=== PATIENT | female | born 1965 | race Caucasian/White ===

== ENCOUNTER 2017-04-20 18:57 | Emergency (ER) | payer BC ==
--- NOTE | 2017-04-20 19:54 | PDOC ---
Rapid Medical Evaluation Chief Complaint: Palpitations Time Seen by Provider: 04/20/17 19:49 Medical Evaluation: Allergies Allergy/AdvReac Type Severity Reaction Status Date / Time No Known Allergies Allergy Verified 04/13/17 05:03 04/20/17 19:51 I Have performed a brief in-person evaluation of this patient. c/o palpitations worse at night. associated symptoms: midsternal chest pain, fatigue, diaphoresis. reports that recently that b/p has been high pmhx : anxiety pertinent physical exam findings: patient alert ox3, nontender chest. regular rate s1 s2, breath sounds clear. I have ordered the following:cbc, cmp, cardiac labs, chest xray, EKG the patient will proceed to the ED for further evaluation. Discharge Disposition - Referrals Referrals: Shyann Aviles MD [Primary Care Provider] - - Patient Instructions - Post Discharge Activity
[2017-04-20 19:57] VITALS: BP 158/88; PULSE 94; TEMP 98.5; BMI 35.6
[2017-04-20 20:28] LABS: BASOPHIL 0.6 % (0-2.0); EOSINOPHIL 0.1 % (0-4.5); MCH 28.4 pg (25.7-33.7); MCHC 34.3 g/dl (32.0-36.0); MEAN CELL VOLUME 82.7 fl (80-96); MEAN PLT VOLUME 8.8 fl (7.5-11.1); PLATELET COUNT 335 K/MM3 (134-434); RDW 13.2 % (11.6-15.6); WHITE BLOOD COUNT 9.3 K/mm3 (4.0-10.0)
[2017-04-20 20:38] LABS: INR 0.95 (0.82-1.09); PROTHROMBIN TIME (PATIENT) 10.7 SEC (9.98-11.88)
[2017-04-20 20:59] LABS: ALBUMIN 4.2 g/dl (3.4-5.0); ALK PHOS 80 U/L (45-117); ANION GAP 8 (8-16); BILIRUBIN,TOTAL 1.1 mg/dL (0.2-1.0); CO2 28 mmol/L (21-32); CPK 79 IU/L (26-192); CREATININE 0.5 mg/dL (0.55-1.02); GLUCOSE,RANDOM 103 mg/dL (74-106); MAGNESIUM 2.4 mg/dL (1.8-2.4); SGOT/AST 13 U/L (15-37); SGPT/ALT 22 U/L (12-78); TOT PROT 8.4 g/dl (6.4-8.2); TROPONIN I < 0.02 ng/ml (0.00-0.05)
[2017-04-20 21:00] LABS: CALCIUM 9.3 mg/dL (8.5-10.1)
--- NOTE | 2017-04-21 01:25 | PDOC ---
History of Present Illness - General Chief Complaint: Palpitations Stated Complaint: FATIGUE Time Seen by Provider: 04/20/17 19:49 - History of Present Illness Initial Comments: 04/21/17 01:26 The patient is a 51 year old female with a significant PMH of HTN, anxiety and depression who presents to the emergency department with palpitations and generalized fatigue beginning approximately 3 weeks ago. The patients daughter reports that the patient has been generally drained of energy lately, causing her to call out of work about 2 days ago. The patients daughter notes that the patient's palpitations have generally come on when the patient is about to sleep or while she is sitting intermittently throughout the day. The patient was in the ED on 04/13 for similar complaints and was discharged home. The patient reports checking her own blood pressure intermittently in the past month , and subjectively reported it to have been high at times. The patient reports being prescribed Paroxetine and Hydrochlorthiazide for depression and HTN, respectively 3 days ago at the [employer] doctor's office. She reports increased urine output since then due to the HCTZ. The patient reports no recent travel, her last trip being to [facility] in December. The patients daughter notes that they have scheduled an appointment with a new PCP next week for these symptoms, but were hoping to get to the bottom of it today . The patient denies chest pain, shortness of breath, headache and dizziness. Denies fever, chills, nausea, vomit, diarrhea and constipation. Denies dysuria, frequency, urgency and hematuria. Allergies: NKA Past surgical history: None reported. Social history: No reported toxic habits. Past History - Past Medical History Allergies/Adverse Reactions: Allergies Allergy/AdvReac Type Severity Reaction Status Date / Time No Known Allergies Allergy Verified 04/13/17 05:03 Home Medications: Ambulatory Orders NK [No Known Home Medication] 04/13/17 Anemia: No Asthma: No Cancer: No Cardiac Disorders: No CVA: No COPD: No DVT: No Dementia: No Diabetes: No Dialysis: No GI Disorders: No Disorders: No HTN: No Hypercholesterolemia: No Kidney Stones: No Liver Disease: No Psychiatric Problems: Yes (Panic Attacks, Anxiety) Seizures: No Thyroid Disease: No Lung CA: No - Surgical History Abdominal Surgery: No Appendectomy: No Cardiac Surgery: No Cholecystectomy: No Gastric Stapling: No GI Surgery: No Lung Surgery: No Neurologic Surgery: No - Suicide/Smoking/Psychosocial Hx Smoking History: Never smoked Have you smoked in the past 12 months: No Information on smoking cessation initiated: No Hx Alcohol Use: No Drug/Substance Use Hx: No Substance Use Type: None Review of Systems - Review of Systems Comments:: 04/21/17 01:27 GENERAL/CONSTITUTIONAL: (+) Generalized fatigue. No fever or chills. No weakness. HEAD, EYES, EARS, NOSE AND THROAT: No change in vision. No ear pain or discharge. No sore throat. GASTROINTESTINAL: No nausea, vomiting, diarrhea or constipation. GENITOURINARY: No dysuria, frequency, or change in urination. CARDIOVASCULAR: (+) Palpitations. No chest pain or shortness of breath. RESPIRATORY: No cough, wheezing, or hemoptysis. MUSCULOSKELETAL: No joint or muscle swelling or pain. No neck or back pain. SKIN: No rash NEUROLOGIC: No headache, vertigo, loss of consciousness, or change in strength/ sensation. ENDOCRINE: No increased thirst. No abnormal weight change. HEMATOLOGIC/LYMPHATIC: No anemia, easy bleeding, or history of blood clots. ALLERGIC/IMMUNOLOGIC: No hives or skin allergy. *Physical Exam - Vital Signs Last Vital Signs Temp Pulse Resp BP Pulse Ox 98.5 F 94 H 18 158/88 96 04/20/17 19:49 04/20/17 19:49 04/20/17 19:49 04/20/17 19:49 04/20/17 19:49 - Physical Exam Comments: 04/21/17 01:27 GENERAL: Awake, alert, and fully oriented, in no acute distress HEAD: No signs of trauma EYES: PERRLA, EOMI, sclera anicteric, conjunctiva clear ENT: Auricles normal inspection, hearing grossly normal, nares patent, oropharynx clear without exudates. Moist mucosa NECK: Normal ROM, supple, no lymphadenopathy, JVD, or masses LUNGS: Breath sounds equal, clear to auscultation bilaterally. No wheezes, and no crackles HEART: Regular rate and rhythm, normal S1 and S2, no murmurs, rubs or gallops ABDOMEN: Soft, nontender, normoactive bowel sounds. No guarding, no rebound. No masses EXTREMITIES: Normal range of motion, no edema. No clubbing or cyanosis. No cords , erythema, or tenderness BACK: No midline spinal tenderness in cervical/thoracic/lumbar region NEUROLOGICAL: Normal speech, cranial nerves intact, negative pronator drift, 5/ 5 strength in all 4 extremities, normal sensation to light touch in all 4 extremities, normal cerebellar exam, normal gait, normal reflexes and tone SKIN: Warm, Dry, normal turgor, no rashes or lesions noted. ED Treatment Course - LABORATORY CBC & Chemistry Diagram: 04/20/17 19:35 04/20/17 19:35 - ADDITIONAL ORDERS Additional order review: Laboratory Results 04/20/17 04/20/17 04/20/17 20:40 20:25 20:25 PT with INR INR D-Dimer < 200 Sodium Potassium Chloride Carbon Dioxide Anion Gap BUN Creatinine Creat Clearance w eGFR Random Glucose Calcium Magnesium Total Bilirubin AST ALT Alkaline Phosphatase Creatine Kinase Troponin I < 0.02 Total Protein Albumin TSH 1.97 D 04/20/17 04/20/17 19:35 19:35 PT with INR 10.70 INR 0.95 D-Dimer Sodium 135 L Potassium 3.5 Chloride 99 Carbon Dioxide 28 Anion Gap 8 BUN 12 D Creatinine 0.5 L Creat Clearance w eGFR > 60 Random Glucose 103 Calcium 9.3 Magnesium 2.4 Total Bilirubin 1.1 H D AST 13 L D ALT 22 Alkaline Phosphatase 80 Creatine Kinase 79 Troponin I < 0.02 Total Protein 8.4 H Albumin 4.2 TSH 04/20/17 19:35 RBC 4.96 MCV 82.7 MCHC 34.3 RDW 13.2 MPV 8.8 Neutrophils % 65.0 Lymphocytes % 28.4 Monocytes % 5.9 Eosinophils % 0.1 D Basophils % 0.6 Medical Decision Making - Medical Decision Making 04/21/17 00:28 51-year-old female with a history of hypertension, anxiety, and depression presents with 3 weeks of fatigue and palpitations. Blood pressure slightly elevated to the 150s in triage however remainder of vitals are unremarkable. Exam is unremarkable. EKG with no evidence of arrhythmia or ischemia. Will check labs for electrolyte abnormalities or thyroid disease as etiology of palpitations. -labs -cxr -dispo 04/21/17 01:31 Labs and chest x-ray unremarkable. Unclear etiology of generalized fatigue and palpitations however it's possible that the recent addition of hydrochlorothiazide and paroxeti to her medication list has cause some of the symptoms. I advised the patient to follow-up with her primary care doctor as scheduled and recommended that she get a Holter monitor for her palpitations. I discussed the physical exam findings, ancillary test results and final diagnoses with the patient. I answered all of the patient's questions. The patient was satisfied with the care received and felt comfortable with the discharge plan and treatment plan. The patient will call their primary care physician within 24 hours to arrange follow-up and will return to the Emergency Department with any new, persistent or worsening symptoms. 04/21/17 04:39 *DC/Admit/Observation/Transfer Diagnosis at time of Disposition: Palpitations - Discharge Dispostion Disposition: HOME Condition at time of disposition: Stable Admit: No - Referrals Referrals: Shyann Aviles MD [Primary Care Provider] - - Patient Instructions Printed Discharge Instructions: DI for Palpitations Additional Instructions: Follow-up with your primary care doctor within 1 week. It may be beneficial to get a Holter monitor for palpitations. Please discussed this with her primary care doctor. Return to the emergency department if you have any new, worsening, or concerning symptoms. Print Language: ESTONIAN - Post Discharge Activity - Attestations Physician Attestion: 04/21/17 01:35 I, Dr. Janice Morales MD, attest that this document has been prepared under my direction and personally reviewed by me in its entirety. I further attest, that it accurately reflects all work, treatment, procedures and medical decision -making performed by me.
--- NOTE | 2017-04-21 10:01 | EKG ---
Test Reason : Blood Pressure : / mmHG Vent. Rate : 073 BPM Atrial Rate : 073 BPM P-R Int : 176 ms QRS Dur : 086 ms QT Int : 416 ms P-R-T Axes : 030 -12 033 degrees QTc Int : 458 ms NORMAL SINUS RHYTHM NORMAL ECG WHEN COMPARED WITH ECG OF 13-APR-2017 06:00, NO SIGNIFICANT CHANGE WAS FOUND Confirmed by SHU FIERRO MD ([id number]) on 04/21/2017 10:01:07 AM Referred By: Confirmed By:SHU FIERRO MD
== END 2017-04-21 02:00 | disposition home or self-care (01) ==
LOC: JER 18:57
DX: R00.2 Palpitations (principal); I10 Essential (primary) hypertension; F41.8 Other specified anxiety disorders
CPT/HCPCS: 36415; 71020-TC; 80053; 82550; 83735; 84443; 84484; 85025; 85379; 85610; 93005; 93010; 99281-25

== ENCOUNTER 2017-04-21 04:34 | Observation (INO) | payer BC ==
--- NOTE | 2017-04-21 05:53 | PDOC ---
History of Present Illness - General Chief Complaint: Palpitations Stated Complaint: RAPID HEARTBEAT Time Seen by Provider: 04/21/17 05:33 - History of Present Illness Initial Comments: 04/21/17 05:48 51-year-old female with a history of hypertension, anxiety, depression presents to the emergency department for the second time tonight with palpitations. The patient was seen by me a few hours ago and had blood work checked including a troponin, d-dimer, and TSH which have returned negative. Her chest x-ray was clear. The patient reports going home attempting to fall asleep and then woke up suddenly short of breath with palpitations and reports that she almost passed out because she felt that her heart was beating so fast. This prompted the patient to return to the emergency department. Past History - Past Medical History Allergies/Adverse Reactions: Allergies Allergy/AdvReac Type Severity Reaction Status Date / Time No Known Allergies Allergy Verified 04/21/17 05:25 Home Medications: Ambulatory Orders NK [No Known Home Medication] 04/13/17 Anemia: No Asthma: No Cancer: No Cardiac Disorders: No CVA: No COPD: No DVT: No Dementia: No Diabetes: No Dialysis: No GI Disorders: No Disorders: No HTN: No Hypercholesterolemia: No Kidney Stones: No Liver Disease: No Psychiatric Problems: Yes (Panic Attacks, Anxiety) Seizures: No Thyroid Disease: No Lung CA: No - Surgical History Abdominal Surgery: No Appendectomy: No Cardiac Surgery: No Cholecystectomy: No Gastric Stapling: No GI Surgery: No Lung Surgery: No Neurologic Surgery: No - Suicide/Smoking/Psychosocial Hx Smoking History: Never smoked Have you smoked in the past 12 months: No Information on smoking cessation initiated: No Hx Alcohol Use: No Drug/Substance Use Hx: No Substance Use Type: None Review of Systems - Review of Systems Comments:: 04/21/17 05:50 GENERAL/CONSTITUTIONAL: No fever or chills. No weakness. +pre-syncope HEAD, EYES, EARS, NOSE AND THROAT: No change in vision. No ear pain or discharge. No sore throat. GASTROINTESTINAL: No nausea, vomiting, diarrhea or constipation. GENITOURINARY: No dysuria, frequency, or change in urination. CARDIOVASCULAR: +shortness of breath +palpitations. no chest pain RESPIRATORY: No cough, wheezing, or hemoptysis. MUSCULOSKELETAL: No joint or muscle swelling or pain. No neck or back pain. SKIN: No rash NEUROLOGIC: No headache, vertigo, loss of consciousness, or change in strength/ sensation. ENDOCRINE: No increased thirst. No abnormal weight change. HEMATOLOGIC/LYMPHATIC: No anemia, easy bleeding, or history of blood clots. ALLERGIC/IMMUNOLOGIC: No hives or skin allergy. *Physical Exam - Vital Signs Last Vital Signs Temp Pulse Resp BP Pulse Ox 97.9 F 86 14 142/92 94 L 04/21/17 05:25 04/21/17 05:25 04/21/17 05:25 04/21/17 05:25 04/21/17 05:25 - Physical Exam Comments: 04/21/17 05:51 GENERAL: Awake, alert, and fully oriented, in no acute distress HEAD: No signs of trauma EYES: PERRLA, EOMI, sclera anicteric, conjunctiva clear ENT: Auricles normal inspection, hearing grossly normal, nares patent, oropharynx clear without exudates. Moist mucosa NECK: Normal ROM, supple, no lymphadenopathy, JVD, or masses LUNGS: Breath sounds equal, clear to auscultation bilaterally. No wheezes, and no crackles HEART: Regular rate and rhythm, normal S1 and S2, no murmurs, rubs or gallops ABDOMEN: Soft, nontender, normoactive bowel sounds. No guarding, no rebound. No masses EXTREMITIES: Normal range of motion, no edema. No clubbing or cyanosis. No cords, erythema, or tenderness NEUROLOGICAL: Normal speech, cranial nerves intact, negative pronator drift, 5/ 5 strength in all 4 extremities, normal sensation to light touch in all 4 extremities, normal cerebellar exam, normal gait, normal reflexes and tone SKIN: Warm, Dry, normal turgor, no rashes or lesions noted. Medical Decision Making - Medical Decision Making 04/21/17 05:52 51-year-old female with a history of hypertension, anxiety, depression presents for the second time tonight with palpitations. Earlier workup included a negative d-dimer, troponin, and TSH however patient now reporting sensation of presyncope. Vitals and exam are unremarkable. Given bounce back to the emergency department and new feeling of presyncope, will admit patient to telemetry observation for monitoring. Will repeat troponin. 04/21/17 06:48 Troponin pending, will admit pt to obs. *DC/Admit/Observation/Transfer Diagnosis at time of Disposition: Palpitations - Discharge Dispostion Condition at time of disposition: Stable Admit: Yes - Referrals - Patient Instructions - Post Discharge Activity - Attestations Physician Attestion: 04/21/17 07:22 I, Dr. Janice Morales MD, attest that this document has been prepared under my direction and personally reviewed by me in its entirety. I further attest, that it accurately reflects all work, treatment, procedures and medical decision -making performed by me.
--- NOTE | 2017-04-21 07:48 | HP ---
CHIEF COMPLAINT: palpitations PCP: Not on staff. [place] HISTORY OF PRESENT ILLNESS: Patient is a 51 year old female with a PMHx of HTN and anxiety/depression who presented to the ED last night due to increasing palpitations associated with fatigue and left arm numbness. Patient was initially discharged from the ED but returned overnight due to worsening palpitations. Patient's son is at bedside and reports that patient has had anxiety for several years but has worsened since December (2016) when her mother . Patient's son reports that her anxiety and palpitations have been intermittent and in the last week it has increased for which she went to the ED for on the 9 of this month and was discharged. She followed up with her OBGYN this week who prescribed her Paroxetine for the anxiety/depression. Patient reports that an appointment has been booked with her new PCP for next week but could not wait until then, which prompted this hospital visit. Patient's son does report that she had holter monitoring done last year he states that "there was nothing wrong." Patient denies having any ECHO's done in the past. Otherwise, patient denies chest pain , shortness of breath, nausea, vomiting, abdominal pain, diarrhea, constipation , fever, chills, dysuria, urgency, hematuria, dizziness, headaches. Patient denies any suicidal or homicidal ideations. ER course was notable for: (1)TSH checked and wnl (2) Troponins negative x3. D-dimer negative (3) Chest X-ray no acute pathology Recent Travel: [facility] (December 2016) PAST MEDICAL HISTORY: HTN, anxiety/depression PAST SURGICAL HISTORY: Hysterectomy with left oophorectomy (2004) Social History: Smoking:Denies Alcohol: Denies Drugs: Denies Family History: Mother- Anxiety, depression, bradycardia with pacemaker Allergies: No Known Allergies Allergy (Verified 04/21/17 05:25) HOME MEDICATIONS: Home Medications Medication Instructions Recorded Paroxetine 10mg PO in the morning One pill once in the morning 04/13/17 REVIEW OF SYSTEMS CONSTITUTIONAL: Absent: fever, chills, diaphoresis, generalized weakness, malaise, loss of appetite, weight change HEENT: Absent: rhinorrhea, nasal congestion, throat pain, throat swelling, difficulty swallowing, mouth swelling, ear pain, eye pain, visual changes CARDIOVASCULAR: palpitations Absent: chest pain, syncope, irregular heart rate, lightheadedness, peripheral edema RESPIRATORY: Absent: cough, shortness of breath, dyspnea with exertion, orthopnea, wheezing, stridor, hemoptysis GASTROINTESTINAL: Absent: abdominal pain, abdominal distension, nausea, vomiting, diarrhea, constipation, melena, hematochezia GENITOURINARY: Absent: dysuria, frequency, urgency, hesitancy, hematuria, flank pain, genital pain MUSCULOSKELETAL: Absent: myalgia, arthralgia, joint swelling, back pain, neck pain SKIN: Absent: rash, itching, pallor HEMATOLOGIC/IMMUNOLOGIC: Absent: easy bleeding, easy bruising, lymphadenopathy, frequent infections ENDOCRINE: Absent: unexplained weight gain, unexplained weight loss, heat intolerance, cold intolerance NEUROLOGIC: paresthesias Absent: headache, focal weakness, dizziness, unsteady gait, seizure, mental status changes, bladder or bowel incontinence PSYCHIATRIC: anxiety, depression Absent: suicidal or homicidal ideation, hallucinations. PHYSICAL EXAMINATION Vital Signs - 24 hr 04/21/17 05:25 Temperature 97.9 F Pulse Rate 86 Respiratory 14 Rate Blood Pressure 142/92 O2 Sat by Pulse 94 L Oximetry (%) GENERAL: Awake, alert, and fully oriented, in no acute distress. HEAD: Normal with no signs of trauma. EYES: Pupils equal, round and reactive to light, extraocular movements intact, sclera anicteric, conjunctiva clear. EARS, NOSE, THROAT: Oropharynx clear without exudates. Moist mucous membranes. NECK: Normal range of motion, supple without lymphadenopathy, JVD, or masses. LUNGS: Breath sounds equal, clear to auscultation bilaterally. No wheezes, and no crackles. No accessory muscle use. HEART: Regular rate and rhythm, normal S1 and S2 without murmur, rub or gallop. ABDOMEN: Soft, nontender, not distended, normoactive bowel sounds, no guarding, no rebound, no masses. MUSCULOSKELETAL: Normal range of motion at all joints. No CVA tenderness. UPPER EXTREMITIES: No peripheral edema. LOWER EXTREMITIES: 2+ pulses, warm, well-perfused. No calf tenderness. No peripheral edema. (-) Denia's sign NEUROLOGICAL: Cranial nerves II-XII intact. Normal speech. Motor strength 5/5 bilaterally with sensations intact bilaterally. PSYCHIATRIC: Cooperative. Good eye contact. Appropriate mood and affect. SKIN: Warm, dry, normal turgor, no rashes or lesions noted, normal capillary refill. Laboratory Results - last 24 hr 04/21/17 06:04 Troponin I < 0.02 Chest X-ray (04/21/17): The trachea is normal in size and is not deviated. Unremarkable contour of the cardiomediastinal silhouette. The lungs are well aerated. No evidence of airspace opacities, atelectasis, pleural effusion, or pneumothorax. No bulky hilar adenopathy is noted. No lung mass is seen within the limitation of examination Multilevel thoracic spine spondylosis. Intact visualized osseous structures Impression. No evidence of active pulmonary disease. ASSESSMENT/PLAN: Patient is a 51 year old female who presented with increasing palpitations and anxiety for the last week. Patient placed in observation telemetry for further monitoring and management. Heart Palpitations -Likely anxiety related but will out cardiac vs. pulmonary etiology -Troponins negative x3 -D-dimer negative as patient had low suspicion of PE or dvt -TSH wnl and hgb and hct wnl -EKG reviewed with no ischemia or abnormalities -ECHO ordered to rule out any valve abnormalities -Continuous cardiac monitoring HTN-Controlled -Will resume home medication HCTZ 25mg PO in the morning -Continue to monitor BP Anxiety/Depression -Resume home medication Paroxetine 10mg PO daily F/E/N -On no fluids. Patient tolerating sodium controlled diet -Electrolytes wnl -Sodium controlled diet Prophylaxis -Low risk. Patient ambulates. SCD's for DVT -No GI required Disposition -Full code -ECHO pending and patient on continuous cardiac monitoring. Visit type - Emergency Visit Emergency Visit: Yes ED Registration Date: 04/21/17 Care time: The patient presented to the Emergency Department on the above date and was hospitalized for further evaluation of their emergent condition. - New Patient This patient is new to me today: Yes Date on this admission: 04/21/17 - Critical Care Critical Care patient: No
[2017-04-21] MEDS ORDERED: HYDROCHLOROTHIAZIDE 25 MG TABLET (FP) ONE (10:02)
[2017-04-21] MEDS ORDERED: PARoxetine HCL 10 MG TABLET (FP) ONE (10:02)
[2017-04-21] MEDS: HYDROCHLOROTHIAZIDE 25 MG TABLET (FP) PO SCH (10:02)
[2017-04-21] MEDS: PARoxetine HCL 10 MG TABLET (FP) PO SCH (10:03)
[2017-04-21 13:36] VITALS: BMI 35.6
--- NOTE | 2017-04-21 14:00 | PN ---
Teaching Attending Note Name of Resident: Caron Elizondo ATTENDING PHYSICIAN STATEMENT I saw and evaluated the patient. I reviewed the resident's note and discussed the case with the resident. I agree with the resident's findings and plan as documented. SUBJECTIVE:51yo F with PMH anxiety, depression, HTN presented with persistent palpitations causing near-syncope. states she has been having on/off palpitations for several months, exacerbated over the past week. mostly on exertion, walking to the bathroom. self resolves in several minutes with rest. states she had holter monitor in the past and reports as negative. was recently started on HCTZ and paxil for anxiety. has been under increased stress and paranoia since her mother several months ago. denies fever, chills, N/V/C/D, weight changes, ahedonia OBJECTIVE: Last Vital Signs Temp Pulse Resp BP Pulse Ox 98.3 F 78 18 132/71 98 04/21/17 13:25 04/21/17 13:25 04/21/17 13:45 04/21/17 13:25 04/21/17 13:45 General NAD CV S1 S2 RRR no murmur/rub/gallop Lungs CTA B/L no wheezing/rales/rhonchi Abdomen soft NT/ND Extremities no pedal edema ASSESSMENT AND PLAN: 51yo F with PMH anxiety, depression, HTN presented with persistent palpitations causing near-syncope 1. Palpitations- tele observation. cardiac enzymes neg x3. TSH WNL, no signs of infection. no signs of ACS. no signs of anemia. d-dimer low with low risk factors for PE. CXR with no acute pathology. will check echo to r/o valvular abnormalities. pt was c/o of palpitations during my exam. as i was examining her there was no palpations auscultated. HR steady at 75 on pulse-ox. spO2 98% on RA. evaluated monitor for any events while i was in the room and was noted to be in sinus rhythm at 74. will monitor on cardiac cath technologist to r/o arrythmia. has appt next week with cardiology. 2. HTN- normotensive. cont HCTZ 3. Anxiety and depression- on lexapro 4. DVT ppx- EAM 5. d/c in AM if no event on cardiac cath technologist. can f/u with cardio appt next week.
[2017-04-22] MEDS: HYDROCHLOROTHIAZIDE 25 MG TABLET (FP) PO SCH (09:22)
[2017-04-22] MEDS: PARoxetine HCL 10 MG TABLET (FP) PO SCH (09:22)
[2017-04-22 09:26] VITALS: BP 114/77; PULSE 72; TEMP 98.2
--- NOTE | 2017-04-22 12:02 | DS ---
Physical Exam: SUBJECTIVE: Patient seen and examined OBJECTIVE: Vital Signs Period Temp Pulse Resp BP Sys/Weaver Pulse Ox Last 24 Hr 97.9 F-99.3 F 60-78 16-20 112-132/71-79 92-98 PHYSICAL EXAM GENERAL: The patient is awake, alert, and fully oriented, in no acute distress. HEAD: Normal with no signs of trauma. EYES: PERRL, extraocular movements intact, sclera anicteric, conjunctiva clear. ENT: Ears normal, nares patent, oropharynx clear without exudates, moist mucous membranes. NECK: Trachea midline, full range of motion, supple. LUNGS: Breath sounds equal, clear to auscultation bilaterally, no wheezes, no crackles, no accessory muscle use. HEART: Regular rate and rhythm, S1, S2 without murmur, rub or gallop. ABDOMEN: Soft, nontender, nondistended, normoactive bowel sounds, no guarding, no rebound, no hepatosplenomegaly, no masses. EXTREMITIES: 2+ pulses, warm, well-perfused, no edema. NEUROLOGICAL: Cranial nerves II through XII grossly intact. Normal speech, gait not observed. PSYCH: Normal mood, normal affect. SKIN: Warm, dry, normal turgor, no rashes or lesions noted. LABS HOSPITAL COURSE: Date of Admission:04/21/17 Date of Discharge: 04/22/17 Minutes to complete discharge: 35 Discharge Summary Reason For Visit: PALPITATIONS Current Active Problems Palpitations (Acute) Condition: Improved - Instructions Diet, Activity, Other Instructions: As we discussed, it is important you follow up with your new doctors on Monday: Dr. Aviles and Dr. Cintron. Referrals: Shyann Aviles MD [Staff Physician] - 04/26/17 Desirae Cintron MD [Staff Physician] - 04/26/17 Disposition: HOME - Home Medications Comprehensive Discharge Medication List: Ambulatory Orders Hydrochlorothiazide [Hctz -] 25 mg PO DAILY 04/21/17 Paroxetine HCl 10 mg PO DAILY 04/21/17 This patient is new to me today: Yes Date on this admission: 04/22/17 Emergency Visit: Yes ED Registration Date: 04/21/17 Care time: The patient presented to the Emergency Department on the above date and was hospitalized for further evaluation of their emergent condition. Critical Care patient: No
== END 2017-04-22 14:00 | disposition home or self-care (01) ==
LOC: JER 04:34 → JERBED 07:23 → J4S 13:17
PROVIDERS: ADMIT Internal Medicine; ATTEND Nurse Practitioner Acute Care
DX: R00.2 Palpitations (principal); I10 Essential (primary) hypertension; F41.9 Anxiety disorder, unspecified; F32.9 Major depressive disorder, single episode, unspecified
CPT/HCPCS: 36415; 84484; 93306-TC; 99285-25; G0378

== ENCOUNTER 2023-06-20 08:08 | Emergency (ER) | payer BC ==
[2023-06-20 09:09] VITALS: BP 120/76; PULSE 82; RESP 18; TEMP 97; BMI 31.4
[2023-06-20] MEDS ORDERED: MECLIZINE HCL 25 MG TABLET (FP) PO ONE (10:01)
[2023-06-20 10:05] LABS: HEMATOCRIT 38.5 % (32.4-45.2); HEMOGLOBIN 12.6 GM/dL (10.7-15.3); MCH 28.7 pg (25.7-33.7); MCHC 32.8 g/dl (32.0-36.0); MEAN CELL VOLUME 87.6 fl (80-96); MEAN PLT VOLUME 8.8 fl (7.5-11.1); PLATELET COUNT 264 10^3/uL (134-434); RDW 13.8 % (11.6-15.6)
[2023-06-20] MEDS ORDERED: SODIUM CHLORIDE 500 ML IV STA (10:05)
[2023-06-20 10:13] LABS: POTASSIUM 3.7 mmol/L (3.5-5.1)
[2023-06-20 10:15] LABS: INR 0.97 (0.83-1.09); PROTHROMBIN TIME (PATIENT) 11.2 SEC (9.7-13.0)
[2023-06-20 10:16] LABS: ALBUMIN 3.4 g/dl (3.4-5.0); BLOOD UREA NITROGEN 9.8 mg/dL (7-18); CALCIUM 8.4 mg/dL (8.5-10.1)
[2023-06-20 10:18] LABS: CREATININE 0.4 mg/dL (0.55-1.3)
[2023-06-20 10:21] LABS: BILIRUBIN,TOTAL 1.2 mg/dL (0.2-1)
[2023-06-20] MEDS ORDERED: MECLIZINE HCL 25 MG TABLET (FP) ONE (11:12)
[2023-06-20 12:09] LABS: EPI CELLS >36 /uL (0-25.1); HYALINE CASTS 3 /uL (0-3.1); PH,URINE 5.5 (5.0-8.0); URINE APPEARANCE CLOUDY; URINE BACTERIA 442 /uL (0-1359); URINE BILIRUBIN NEGATIVE (NEGATIVE); URINE COLOR YELLOW; URINE GLUCOSE (UA) NEGATIVE (NEGATIVE); URINE KETONE NEGATIVE (NEGATIVE); URINE LEUK ESTERASE 2+ (NEGATIVE); URINE NITRITE NEGATIVE (NEGATIVE); URINE PROTEIN 2+ (NEGATIVE); URINE RBC 14 /uL (0-23.9); URINE UROBILINOGEN 0.2 mg/dL (0.2-1.0); URINE WBC 71 /uL (0-25.8)
[2023-06-20 12:37] LABS: URINE CRYSTALS CA OXALATE FEW /hpf
[2023-06-20 12:53] LABS: EPI CELLS 12 /uL (0-25.1); HYALINE CASTS 0 /uL (0-3.1); URINE APPEARANCE CLEAR; URINE BACTERIA 87 /uL (0-1359); URINE BILIRUBIN NEGATIVE (NEGATIVE); URINE COLOR YELLOW; URINE GLUCOSE (UA) NEGATIVE (NEGATIVE); URINE KETONE NEGATIVE (NEGATIVE); URINE LEUK ESTERASE 1+ (NEGATIVE); URINE NITRITE NEGATIVE (NEGATIVE); URINE PROTEIN NEGATIVE (NEGATIVE); URINE RBC 7 /uL (0-23.9); URINE UROBILINOGEN 0.2 mg/dL (0.2-1.0); URINE WBC 7 /uL (0-25.8)
== END 2023-06-20 12:45 | disposition home or self-care (01) ==
LOC: JER 08:08
PROC: 3E0337Z Introduction of Electrolytic and Water Balance Substance into Peripheral Vein, Percutaneous Approach (ICD-10-PCS; principal; 2023-06-20)
DX: R42 Dizziness and giddiness (principal); R11.0 Nausea; R51.9 Headache, unspecified; R53.1 Weakness; Z20.822 Contact with and (suspected) exposure to COVID-19
CPT/HCPCS: 0241U-QW; 36415; 70450-TC; 70551-TC; 80053; 81003; 82962; 84484; 85027; 85610; 87086; 93005; 93010; 99285-25